=== PATIENT | male | born 1950 | race Two or more races ===

== ENCOUNTER 2021-08-16 10:42 | Emergency (ER) | payer OTHER ==
[~2021-08-16] VITALS: Ht 170.2 cm; Wt 72.6 kg
[2021-08-16] MEDS ORDERED: VERAPAMIL ER240 MG (11:08)
[2021-08-16] MEDS ORDERED: HYZAAR 100-251 EACH (11:09)
[2021-08-16] MEDS ORDERED: JANUVIA50 MG PO (16:49)
[2021-08-16] MEDS ORDERED: GLUCOMETERSTRIP (16:49)
[2021-08-16] MEDS ORDERED: METFORMIN HCL500 MG PO (16:49)
[2021-08-16] MEDS ORDERED: GLUCOMETERDEVICE (16:49)
== END 2021-08-16 19:34 | disposition home or self-care (01) ==
LOC: ER 10:42
DX: E11.65 Type 2 diabetes mellitus with hyperglycemia (principal)

== ENCOUNTER 2023-01-03 13:32 | Outpatient (CLI) | payer OTHER ==
[~2023-01-03 13:32] MED LIST: GLUCOMETERDEVICE; GLUCOMETERSTRIP; HYZAAR 100-251 EACH; JANUVIA50 MG PO; METFORMIN HCL500 MG PO; VERAPAMIL ER240 MG
== END 2023-01-03 13:45 | disposition home or self-care (01) ==
LOC: RAD 13:32
DX: M54.2 Cervicalgia (principal); M54.6 Pain in thoracic spine; M54.59 Other low back pain